=== PATIENT | male | born 1990 | race Hispanic/Latino ===

== ENCOUNTER 2017-11-07 15:21 | Inpatient (IN) | payer MEDICAID, OTHER ==
[~2017-11-07] VITALS: Ht 180.3 cm; Wt 65.7 kg
[2017-11-07] MEDS ORDERED: ONDANSETRON HCL 4 MG/2 ML VIAL ONE ×2 (15:56→20:12)
[2017-11-07] MEDS ORDERED: SODIUM CHLORIDE 0.9% 1000ML 1,000 ML IV ONE ×2 (15:56→19:29)
[2017-11-07] MEDS ORDERED: MORPHINE SULFATE 4 MG/1ML SYG ONE (15:57)
[2017-11-07 16:02] LABS: APPEARANCE,URINE Clear (CLEAR); BILIRUBIN,URINE Negative (NEGATIVE); COLOR,URINE Yellow (YELLOW); GLUCOSE, URINE (UA) Negative (NEGATIVE); KETONES,URINE Negative (NEGATIVE); LEUKOCYTE ESTERASE ,URINE Negative (NEGATIVE); NITRATE,URINE Negative (NEGATIVE); OCCULT BLOOD,URINE Small (NEGATIVE); PROTEIN,URINE 300 (NEGATIVE); UROBILINOGEN,URINE 0.2 mg/dL (0.2-1.0)
[2017-11-07 16:07] LABS: BASOPHILS % (AUTO) 1.1 % (0.0-5.0); EOSINOPHILS % (AUTO) 6.9 % (0.0-8.0); MEAN CORPUSCULAR HEMOGLOBIN 28.1 pg (27.0-33.0); MEAN CORPUSCULAR HGB CONC 31.8 g/dL (32.0-36.0); MEAN CORPUSCULAR VOLUME 88.4 fL (79-99); MONOCYTES % (AUTO) 4.9 % (3.0-13.0); NEUTROPHILS % (AUTO) 51.1 % (40.0-77.0); PLATELET COUNT (AUTO) 282 K/uL (130-400); RED BLOOD CELL COUNT(AUTO) 1.83 MIL/uL (4.50-6.20); RED CELL DISTRIBUTION WIDTH 13.7 % (11.0-15.5); WHITE BLOOD COUNT (AUTO) 6.5 K/uL (4.8-10.8)
[2017-11-07 16:11] LABS: HEMATOCRIT 16.2 % (42-54)
[2017-11-07 16:15] LABS: BILIRUBIN,TOTAL 0.3 mg/dL (0.2-1.0); POTASSIUM 5.6 mmol/L (3.5-5.1)
[2017-11-07 16:30] LABS: BACTERIA,URINE Few /HPF (None Seen); CREATININE 13.2 mg/dL (0.5-1.5); RBC,URINE 0-1 /HPF (0-1)
[2017-11-07 16:31] LABS: HYALINE CASTS, URINE 0-1 /LPF (0-1 /LPF); SQUAMOUS EPITHELIAL CELL,UR Few /HPF (0-2)
[2017-11-07] MEDS ORDERED: SODIUM POLYSTYRENE SULFONATE 15 GM/60 ML ML ONE (17:09)
[2017-11-07] MEDS ORDERED: SODIUM BICARB 50MEQ 50ML VIAL ONE (17:10)
[2017-11-07] MEDS ORDERED: CALCIUM GLUCONATE 1 GM/10 ML VIAL IV ONE (17:10)
[2017-11-07] MEDS ORDERED: INSULIN HUMULIN R 100 UNIT/ML 3ML ONE (17:11)
[2017-11-07] MEDS ORDERED: DEXTROSE 50%-WATER 50 ML DISP.SYRIN IV ONE (17:12)
[2017-11-07] MEDS ORDERED: PANTOPRAZOLE SODIUM 40 MG TABLET.DR PO SCH (20:14)
[2017-11-07] MEDS ORDERED: MORPHINE SULFATE 4 MG/1ML SYG IM PRN (20:15)
[2017-11-07] MEDS ORDERED: DEXTROSE 5 %-0.45 % NACL 1,000 ML IV SCH (20:15)
[2017-11-07] MEDS ORDERED: GLUCAGON 1MG KIT 1 MG ML IM PRN (20:15)
[2017-11-07 22:41] VITALS: BP 153/99
[2017-11-08] VITALS (13 sets, daily range): BP systolic 134–166; BP diastolic 78–108
[2017-11-08 05:28] LABS: MEAN CORPUSCULAR HEMOGLOBIN 29.8 pg (27.0-33.0); MEAN CORPUSCULAR HGB CONC 33.8 g/dL (32.0-36.0); MEAN CORPUSCULAR VOLUME 88.1 fL (79-99); PLATELET COUNT (AUTO) 268 K/uL (130-400); RED BLOOD CELL COUNT(AUTO) 1.94 MIL/uL (4.50-6.20); RED CELL DISTRIBUTION WIDTH 13.6 % (11.0-15.5); WHITE BLOOD COUNT (AUTO) 6.1 K/uL (4.8-10.8)
[2017-11-08 05:31] LABS: HEMATOCRIT 17.1 % (42-54)
[2017-11-08] MEDS: DEXTROSE 50%-WATER 50 ML DISP.SYRIN IV PRN (05:40)
[2017-11-08 05:59] LABS: POTASSIUM 5.7 mmol/L (3.5-5.1)
[2017-11-08 06:02] LABS: CREATININE 13.4 mg/dL (0.5-1.5)
[2017-11-08 09:06] LABS: INR 1.15 (0.85-1.15); PARTIAL THROMBOPLASTIN TIME 38.5 SEC (26.3-35.5)
[2017-11-08] MEDS ORDERED: LIDOCAINE HCL 1% MDV 50ML VIAL ONE (09:07)
[2017-11-08] MEDS: ONDANSETRON HCL MDV 20ML 2 MG/ML VIAL IVP PRN (11:42)
[2017-11-08] MEDS ORDERED: SODIUM CHLORIDE 0.9% 1000ML 1,000 ML IV PRN (13:15)
[2017-11-08] MEDS ORDERED: HEPARIN SODIUM 5000UNIT/ML 1ML VIAL IJ PRN (13:15)
[2017-11-08] MEDS ORDERED: 0.9% SODIUM CHLORIDE 250 ML IV BAG IV PRN (13:15)
[2017-11-08] MEDS ORDERED: ALBUMIN (HUMAN) 25% 100 ML IV PRN (13:15)
[2017-11-08 13:46] LABS: HEMATOCRIT 19.3 % (42-54)
[2017-11-08 13:56] LABS: HEMOGLOBIN A1C 5.4 % (4.0-6.0)
[2017-11-08 13:57] LABS: ALBUMIN 1.9 g/dL (3.5-5.0)
[2017-11-08 14:23] LABS: % IRON SATURATION 22.1 % (30-44)
[2017-11-09] VITALS (8 sets, daily range): BP systolic 100–147; BP diastolic 52–96
[2017-11-09 05:17] LABS: BASOPHILS % (AUTO) 1.1 % (0.0-5.0); EOSINOPHILS % (AUTO) 7.3 % (0.0-8.0); HEMATOCRIT 25.2 % (42-54); LYMPHOCYTES % (AUTO) 43.6 % (21.0-51.0); MEAN CORPUSCULAR HEMOGLOBIN 30.1 pg (27.0-33.0); MEAN CORPUSCULAR VOLUME 88.5 fL (79-99); MONOCYTES % (AUTO) 6.6 % (3.0-13.0); NEUTROPHILS % (AUTO) 41.4 % (40.0-77.0); PLATELET COUNT (AUTO) 329 K/uL (130-400); RED BLOOD CELL COUNT(AUTO) 2.84 MIL/uL (4.50-6.20); RED CELL DISTRIBUTION WIDTH 13.6 % (11.0-15.5); WHITE BLOOD COUNT (AUTO) 6.3 K/uL (4.8-10.8)
[2017-11-09 05:36] LABS: POTASSIUM 4.7 mmol/L (3.5-5.1)
[2017-11-09 08:20] LABS: HEPATITIS Bs ANTIGEN SCREEN P Negative (Negative)
[2017-11-09] MEDS ORDERED: COMPOUND IV MISC 1 EACH IVSOLN MISC PRN (13:15)
[2017-11-09] MEDS ORDERED: EPOETIN ALFA 20,000 UNIT/ML VIAL SQ SCH (15:00)
[2017-11-09] MEDS: METOCLOPRAMIDE 10 MG/2 ML VIAL IVP SCH ×2 (19:16→23:34)
[2017-11-10] VITALS (21 sets, daily range): BP systolic 113–180; BP diastolic 69–112
[2017-11-10 05:28] LABS: BASOPHILS % (AUTO) 0.9 % (0.0-5.0); EOSINOPHILS % (AUTO) 5.4 % (0.0-8.0); HEMATOCRIT 24.4 % (42-54); LYMPHOCYTES % (AUTO) 39.3 % (21.0-51.0); MEAN CORPUSCULAR HEMOGLOBIN 29.8 pg (27.0-33.0); MEAN CORPUSCULAR HGB CONC 33.9 g/dL (32.0-36.0); MEAN CORPUSCULAR VOLUME 87.8 fL (79-99); MONOCYTES % (AUTO) 8.3 % (3.0-13.0); NEUTROPHILS % (AUTO) 46.1 % (40.0-77.0); PLATELET COUNT (AUTO) 301 K/uL (130-400); RED BLOOD CELL COUNT(AUTO) 2.78 MIL/uL (4.50-6.20); RED CELL DISTRIBUTION WIDTH 13.5 % (11.0-15.5); WHITE BLOOD COUNT (AUTO) 5.9 K/uL (4.8-10.8)
[2017-11-10 05:41] LABS: CREATININE 8.7 mg/dL (0.5-1.5)
[2017-11-10] MEDS: IRON SUCROSE COMPLEX 100 MG in SODIUM CHLORIDE 0.9% 50 ML IV SCH (09:40)
[2017-11-10] MEDS ORDERED: PROPOFOL 10 MG/ML 20ML VIAL IV ONE (10:50)
[2017-11-10] MEDS ORDERED: PEG 3350/NA SULF,BICARB,CL/KCL 4000 ML SOLN PO SCH (13:30)
[2017-11-10] MEDS ORDERED: LACTULOSE 20 GM/30 ML UDCUP PO SCH ×3 (13:30→16:00)
[2017-11-10] MEDS ORDERED: LACTULOSE 20 GM/30 ML UDCUP ONE (13:47)
[2017-11-10] MEDS ORDERED: MAGNESIUM CITRATE 296 ML SOLUTION PO SCH (16:30)
[2017-11-11] VITALS (19 sets, daily range): BP systolic 119–164; BP diastolic 70–105
[2017-11-11] MEDS ORDERED: MIDAZOLAM HCL 1 MG/ML 2ML VIAL ONE ×2 (18:12→18:25)
[2017-11-11] MEDS ORDERED: MEPERIDINE-PF 50 MG/ML SYG ONE (18:15)
[2017-11-11] MEDS: PANTOPRAZOLE SODIUM 40 MG TABLET.DR PO SCH (19:21)
[2017-11-11] MEDS: ONDANSETRON HCL MDV 20ML 2 MG/ML VIAL IVP PRN (19:23)
[2017-11-11] MEDS: IRON SUCROSE COMPLEX 100 MG in SODIUM CHLORIDE 0.9% 50 ML IV SCH (19:24)
[2017-11-11] MEDS ORDERED: HYDRALAZINE HCL 20 MG/ML VIAL IV PRN (20:15)
[2017-11-12 04:05] VITALS: BP 141/83
[2017-11-12] MEDS: DEXTROSE 50%-WATER 50 ML DISP.SYRIN IV PRN (05:44)
[2017-11-12 08:05] VITALS: BP 144/89
[2017-11-12] MEDS: PANTOPRAZOLE SODIUM 40 MG TABLET.DR PO SCH (09:48)
[2017-11-12 12:00] VITALS: BP 160/87
== END 2017-11-12 16:00 | disposition home or self-care (01) | DRG 682 ==
LOC: EDH 15:21 → EDHIP 15:22 → 4CH 22:14
PROVIDERS: ADMIT Internal Medicine Nephrology; ATTEND Internal Medicine Nephrology
PROC: 30233N1 Transfusion of Nonautologous Red Blood Cells into Peripheral Vein, Percutaneous Approach (ICD-10-PCS; 2017-11-08)
PROC: 5A1D70Z Performance of Urinary Filtration, Intermittent, Less than 6 Hours Per Day (ICD-10-PCS; 2017-11-08)
PROC: 5A1D70Z Performance of Urinary Filtration, Intermittent, Less than 6 Hours Per Day (ICD-10-PCS; 2017-11-09)
PROC: 02H633Z Insertion of Infusion Device into Right Atrium, Percutaneous Approach (ICD-10-PCS; principal; 2017-11-10)
PROC: 0DB58ZX Excision of Esophagus, Via Natural or Artificial Opening Endoscopic, Diagnostic (ICD-10-PCS; 2017-11-10)
PROC: 0DB68ZX Excision of Stomach, Via Natural or Artificial Opening Endoscopic, Diagnostic (ICD-10-PCS; 2017-11-10)
PROC: 5A1D70Z Performance of Urinary Filtration, Intermittent, Less than 6 Hours Per Day (ICD-10-PCS; 2017-11-11)
DX: I12.0 Hypertensive chronic kidney disease with stage 5 chronic kidney disease or end stage renal disease (principal); N18.6 End stage renal disease; N17.9 Acute kidney failure, unspecified; K92.0 Hematemesis; E87.5 Hyperkalemia; D63.1 Anemia in chronic kidney disease; N27.1 Small kidney, bilateral; E86.0 Dehydration; K20.9 Esophagitis, unspecified; K29.60 Other gastritis without bleeding; K29.80 Duodenitis without bleeding; Z99.2 Dependence on renal dialysis; Z80.3 Family history of malignant neoplasm of breast; Z82.49 Family history of ischemic heart disease and other diseases of the circulatory system; Z83.3 Family history of diabetes mellitus
CPT/HCPCS: 36415; 36556; 71045; 74176; 80048; 80053; 80061; 81001; 82040; 82270; 82550; 82607; 82728; 82948; 83036; 83540; 83550; 83735; 84520; 85014; 85018; 85025; 85027; 85610; 85730; 86677; 86701; 86704; 86706; 86850; 86900; 86901; 86922; 87177; 87340; 87390; 87520; 88305; 88312; 90935; 93005; 99291; C1752; J0610; J0885; J1644; J1756; J1815; J2175; J2250; J2270; J2405; J2704; J2765; J3490; J7030; J7042; J7070; P9016